=== PATIENT | male | born 1985 | race Caucasian/White ===

== ENCOUNTER 2022-10-29 19:41 | Emergency (ER) | payer SELFPAY ==
[2022-10-29] MEDS ORDERED: NA CHLORIDE 0.9% 1,000 ML ONE (20:22)
[2022-10-29 20:41] LABS: Urine Blood 3+ (Negative); Urine Glucose Negative (Negative); Urine Protein Negative (Negative)
[2022-10-29 20:47] LABS: Absolute Lymphocytes (CBC) 2.6 K/uL (0.7-4.9); Hematocrit 54.2 % (39.6-49.0); Lymphocytes % 27.5 % (15.3-44.8); MCV 91.4 fL (80-100); MPV 7.9 fL (7.6-11.3); RBC Red Blood Cell Count 5.93 M/uL (4.33-5.43)
[2022-10-29 20:56] LABS: Barbiturates NEGATIVE (NEGATIVE); Benzodiazepines POSITIVE (NEGATIVE); Cocaine NEGATIVE (NEGATIVE); METHAMPHETAM POSITIVE (NEGATIVE); Methadone NEGATIVE (NEGATIVE); Opiates NEGATIVE (NEGATIVE); Phencyclidine NEGATIVE (NEGATIVE); THC Cannibis NEGATIVE (NEGATIVE)
[2022-10-29 21:12] LABS: ALT/SGPT 62 U/L (16-61); AST/SGOT 45 U/L (15-37); Alkaline Phosphatase 64 U/L (45-117); BUN Blood Urea Nitrogen 11 mg/dL (7-18); Bicarbonate 34 mmol/L (21-32); Bilirubin Direct 0.2 mg/dL (0-0.2); Bilirubin Total 0.7 mg/dL (0.2-1.0); Glomerular Filtration Rate 94 ml/min (=/>90); Glucose Level 80 mg/dL (74-106); Potassium 4.2 mmol/L (3.5-5.1); Protein, Total 7.9 g/dL (6.4-8.2); Sodium Level 137 mmol/L (136-145)
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
[2022-10-29 23:06] VITALS: TEMP 98; O2SAT 99
[2022-10-29 23:10] VITALS: BP 131/88
--- NOTE | 2022-10-30 17:02 | EKG ---
Test Date: 2022-10-29 Test Time: 20:34:09 Yard Hostler: RAYMOND MEASUREMENT RESULTS: Intervals: Rate: 72 [place]: 138 QRSD: 92 QT: 370 QTc: 405 [place]: P: 70 [place]: 138 QRS: 83 T: 87 INTERPRETIVE STATEMENTS: Normal sinus rhythm Minimal voltage criteria for LVH, may be normal variant Borderline ECG Compared to ECG 01/16/2014 01:50:46 Left ventricular hypertrophy now present Sinus arrhythmia no longer present Electronically Signed On 10-30-22 17:01:11 [employer]ICAL [employer]ILL[employer]ER by Fabian Currie
== END 2022-10-29 22:34 | disposition home or self-care (01) ==
LOC: ER 19:41
DX: Z71.1 Person with feared health complaint in whom no diagnosis is made (principal)
CPT/HCPCS: 36415; 80048; 80076; 80307; 80320; 80329; 81003; 85025; 93005; J7030

== ENCOUNTER 2024-05-06 23:32 | Emergency (ER) | payer SELFPAY ==
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
--- NOTE | 2024-05-06 23:44 | EDPHYS ---
Physician Documentation [facility] Name: Gigi Lee Age: 38 yrs Sex: Male : 1985 Arrival Date: 05/06/2024 Time: 23:32 Bed 10 Private MD: ED Physician Arcenio Walker HPI: 05/06 23:42 This 38 yrs old Male presents to ER via Unassigned with complaints of Poison tarah. kb 23:42 Pt is a 38 year old male who presents for diffuse rash that started 2 days ago. States kb he [place] and got into poison tarah. Reports swelling to left forearm that started today. . Historical: - Allergies: 23:44 No Known Allergies; tl4 - Home Meds: 23:57 Adderall XR Oral [Active]; diazepam Oral [Active]; tl4 - PMHx: 23:44 adhd; tl4 - PSHx: 23:44 None; tl4 - Immunization history:: Adult Immunizations unknown. - Infectious Disease History:: Denies. - Social history:: Smoking status: Reported history of juuling and/or vaping. ROS: 23:41 Constitutional: As per HPI kb Exam: 23:41 Constitutional: This is a well developed, well nourished patient who is awake, alert, kb and in no acute distress. Head/Face: Normocephalic, atraumatic. ENT: Moist Mucous membranes Cardiovascular: Regular rate Respiratory: Respirations even and unlabored. No increased work of breathing. Talking in full sentences Abdomen/GI: Soft, non-tender. No distention MS/ Extremity: Pulses equal, no cyanosis. Neurovascular intact. Full, normal range of motion. Neuro: Awake and alert, GCS 15, oriented to person, place, time, and situation. Moves all extremities. Normal gait. 23:41 Skin: cellulitis, that is minimal, on the left forearm, rash a moderate rash is noted, consistent with contact dermatitis, and is diffusely located, Vital Signs: 23:41 BP 129 / 86; Pulse 102; Resp 18; Temp 98.1(TE); Pulse Ox 96% on R/A; Weight 79.38 kg; tl4 Height 5 ft. 10 in. ; Pain 5/10; 23:41 Body Mass Index 25.11 (79.38 kg, 177.8 cm) tl4 23:41 Pain Scale: Adult tl4 MDM: 23:37 Patient medically screened. kb 23:41 Differential diagnosis: cellulitis, contact dermatitis. Data reviewed: vital signs, kb nurses notes. Counseling: I had a detailed discussion with the patient and/or guardian regarding the historical points, exam findings, and any diagnostic results supporting the discharge/admit diagnosis, the need for outpatient follow up, a family practitioner, to return to the emergency department if symptoms worsen or persist or if there are any questions or concerns that arise at home. Administered Medications: 23:55 Drug: Dexamethasone IM 10 mg IM once Route: IM; Site: right ventrogluteal; tl4 23:55 Drug: Famotidine PO 20 mg PO once Route: PO; tl4 23:55 Drug: Cephalexin PO 500 mg PO once Route: PO; tl4 Disposition: 05/07 05:55 Co-signature as Attending Physician, Arcenio Walker MD I agree with the assessment sp4 and plan of care. I reviewed the patient's care provided by the Advanced Practice Provider and agree with the diagnosis and treatment plan. Disposition Summary: 05/06/24 23:43 Discharge Ordered Notes: Location: Home kb Condition: Stable kb Diagnosis - Allergic contact dermatitis due to plants, except food kb - Cellulitis of left upper limb kb Followup: kb - With: Emergency Department - When: As needed - Reason: Worsening of condition Followup: kb - With: Private Physician - When: 2 - 3 days - Reason: Recheck today's complaints, Continuance of care, Re-evaluation by your physician Discharge Instructions: - Discharge Summary Sheet kb - Cellulitis, Adult, [id number] kb - Poison Tarah Dermatitis, [id number] kb Forms: - Medication Reconciliation Form kb - Antibiotic Education kb - Prescription Opioid Use kb - Patient Portal Instructions kb - Leadership Thank You Letter kb Prescriptions: - Cephalexin 500 mg Oral Capsule - take 1 capsule ORAL route every 8 hours for 10 days; 30 capsule; Refills: 0, kb Product Selection Permitted - Pepcid 20 mg Oral Tablet - take 1 tablet ORAL route every 12 hours for 5 days; 10 tablet; Refills: 0, kb Product Selection Permitted - Prednisone 20 mg Oral Tablet - take 1 tablet ORAL route once daily for 5 days; 5 tablet; Refills: 0, Product kb Selection Permitted Signatures: Rosa Olguin, FINANCING ANALYST-C FINANCING ANALYST-Ckb Arcenio Walker MD MD sp4 Joon Jones RN RN tl4
[2024-05-06] MEDS ORDERED: FAMOTIDINE 20 MG TAB ONE (23:50)
[2024-05-06] MEDS ORDERED: dexAMETHasone 10 MG/ML VIAL ONE (23:50)
[2024-05-06] MEDS ORDERED: CEPHALEXIN 250 MG CAP ONE (23:50)
[2024-05-07 01:08] VITALS: BP 129/86; TEMP 98.1; O2SAT 96
== END 2024-05-07 00:18 | disposition home or self-care (01) ==
LOC: ER 23:32
DX: L23.7 Allergic contact dermatitis due to plants, except food (principal); L03.114 Cellulitis of left upper limb
CPT/HCPCS: 96372; 99284; J1100